=== PATIENT | female | born 1965 | race Caucasian/White ===

== ENCOUNTER 2024-04-10 15:03 | Emergency (ER) | payer OTHER, SELFPAY ==
[2024-04-10 15:40] VITALS: BP 123/75
--- NOTE | 2024-04-10 15:58 | ED.MUSCINJ ---
Addendum entered and electronically signed by Ruel Boucher Jr., PA-C 04/14/24 08:11:
Results with methicillin sensitive staph. Patient can remain on previously prescribed antibiotic.
Addendum entered and electronically signed by Howard Darnell PA-C 04/12/24 08:53:
Received culture result from fluid culture that was drawn 2 days ago. There is moderate presumptive Staphylococcus aureus on the pulmonary result. Patient started on Keflex. Attempted to call patient to discuss results however there was no
answer. Left message to return call.
Original Note:
HPI-Injury
General
Chief Complaint: Musculo-Skeletal Complaint
Source: patient
Exam Limitations: none
Time Seen by Provider: 04/10/24 15:49
Nursing documentation reviewed up to this point in time: agreed with
History of Present Illness-Injury
Is this injury a work related problem?: No
Is pt an associate of [facility]?: No
Initial Injury comments:
Patient states she injured her elbow last week while at [facility] [place]. SHe does not recall injury. States on her drive home she noticed blood and a smallwound to right posterior elbow. OVer the past 2 days elbow has gotten increasingly red
and swollen.Brought self to ED for eval.
Past History
Past History
ED Past Medical History: None
Review of Systems
Review of Systems
Allergies reviewed?: Yes
All Other Systems: ROS reviewed and negative except as documented in HPI and ROS
Constitutional: Reports no symptoms
Musculoskeletal: Reports joint swelling (right posterior elbow. Full nonpainful ROM to joint.)
Skin: Reports other (erythema and swelling to right posterior elbow.)
Neurological: Reports no symptoms
Psychiatric: Reports no symptoms
Musculoskeletal Injury Exam
Musculoskeletal Injury Exam
Right Posterior Elbow:
Pain with Movement?: None
Tender to palpation?: Mild
Soft tissue swelling?: Moderate
External deformity and angulation?: None
Joint effusion?: None
Contusion?: None
Hematoma-local bleeding into tissue?: None
Strain- Sprain- Tear (Connective tissue injury)?: None
Crepitus with movement?: No
Joint instability?: No
Malalignment/deformity?: No
Range of motion: Full
Distal skin color and temperature: normal-warm & good color
Capillary Refill: normal
Normal distal neurovascular exam?: Yes
Peripheral Pulses: radial (right): 3+
Skin Exam
Abrasion
Right Posterior Elbow:
Description of abrasion: deep/clean
Phy Exam
General Physical Exam
General Presentation: well appearing and no apparent distress
General age: appears stated age
General Skin: warm and dry
General Habitus: normal
Musculoskeletal Exam
Musculoskeletal Exam: full ROM, neuro vasc intact and other (erythema and swelling to right posterior elbow)
Skin Exam
Skin Exam: other (erythema and swelling to right posterior elbow.)
Psychiatric Exam
Psychiatric Exam: normal mood/affect
Injury Course
Orders/Labs/Results
Orders:
Orders
04/10/24 15:07
CR Elbow - Right Min 3 Views Urgent
Comment:
Reason For Exam: Inflammation after an injury
04/10/24 16:01
Body Fluid Cell Count Urgent
What is the Body Fluid: joint
Date Specimen was Collected: 04/10/24
Time Specimen was Collected: 16:00
Comment: with DIFF
Body Fluid Crystals Urgent
What is the Body Fluid: joint
Date Specimen was Collected: 04/10/24
Time Specimen was Collected: 16:00
CBC/With Diff [Complete Blood Count/With Diff] Urgent
CMP [Comprehensive Metabolic Panel] Urgent
Lactate Level [Lactic Acid] Urgent
Fluid Culture with Gram Stain Urgent
TRAVIS Source: Joint Fluid
Specimen Description:
Date Specimen was Collected: 04/10/24
Time Specimen was Collected: 16:00
04/10/24 16:36
Cephalexin Monohydrate [Keflex] 500 mg PO NOW STA
04/10/24 16:37
Cephalexin Monohydrate [Keflex] 500 mg .ROUTE .STK-MED ONE
Abnormal Lab Results
04/10/24
16:01
WBC 10.9 H 10^3/uL
(4.8-10.8)
RBC 4.00 L 10^6/uL
(4.20-5.40)
Hct 35.4 L %
(37.0-47.0)
Absolute Neuts (auto) 7.8 H 10^3/uL
(1.4-6.5)
Absolute Monos (auto) 1.2 H 10^3/uL
(0.1-0.6)
Lymphocytes % 15.5 L %
(20.5-51.1)
Monocytes % 11.1 H %
(1.7-9.3)
Sodium 134 L mmol/L
(135-145)
04/10/24 16:01
04/10/24 16:01
Procedures
Incision/Drainage/Joint Aspiration
Right Posterior Elbow:
Anethesia: 1% Lidocaine with Epi
Preparation: cleaned with alcohol wipe
Type of procedure: aspiration
How much fluid was obtained?: number in mls (4)
Fluid description: clear
*Radiology
Radiology exam reviewed: radiology read reviewed
*Pulse Oximetry
Patient hypoxic: no
*Critical Care Note
Total Time (30-74mins, 75-104mins- exclusive of procedures): Not Applicable
ED Attending Note
-
Portions of this chart may have been created with voice recognition software.� Occasional wrong word or��sound alike� substitutions may have occurred due to the inherent limitations of voice recognition software.
Discharge Plan
Departure
Patient Disposition: Home (Routine Discharge)
Date of Disposition: 04/10/24
Time of Disposition: 16:37
Patient with high blood pressure during this ER visit?: No
Condition: Good
Covid-19: Not Applicable
Discharge Problem:
Cellulitis of right elbow
Instructions: Cellulitis (Skin Infection), Adult ED
Prescriptions:
New
cephalexin 500 mg capsule
500 mg PO Q6H 10 Days Qty: 40 0RF
Referrals:
Esteban Weeks MD [Active] -
NONE,* [Family Provider] -
Activity Restrictions/Additional Instructions:
Follow up with your family doctor in 2 days for a wound check. Return to the emergency department immediately for fever/chills, increasing pain/redness/swelling to your elbow, or for any further concerns.
Interventions
Interventions:
*Risk Screen - Suicide Last Done: 04/10/24 15:50
*General Assessment Last Done: 04/10/24 15:50
*Neglect/Abuse Screening Last Done: 04/10/24 15:50
ED- Fall Risk Assessment Last Done: 04/10/24 15:41
*Nursing Disposition Last Done: 04/10/24 16:47
ED-Musculoskeletal Assessment Last Done: 04/10/24 15:41
Discharge Date and Time
Discharge Date/Time: 04/10/24 16:48
Print Language: TUVALU[place]
[2024-04-10 16:12] LABS: % Basophils 0.5 % (0-2); % Immature Granulocytes 0.4 % (0-0.5); % Lymphocytes 15.5 % (20.5-51.1); % Monocytes 11.1 % (1.7-9.3); % Neutrophils 71.5 % (42.2-75.2); Absolute Basophils 0.1 10^3/uL (0-0.2); Absolute Eosinophils 0.1 10^3/uL (0-0.7); Absolute Lymphocytes 1.7 10^3/uL (1.2-3.4); Absolute Monocytes 1.2 10^3/uL (0.1-0.6); Absolute Neutrophils 7.8 10^3/uL (1.4-6.5); Hematocrit 35.4 % (37.0-47.0); Hemoglobin 12.3 g/dL (12.0-16.0); Mean Corp Hgb Conc. 34.7 g/dL (33.0-37.0); Mean Corpuscular Hgb 30.8 pg (27.0-31.0); Mean Corpuscular Volume 88.5 fL (81.0-99.0); Mean Platelet Volume 9.4 fL (7.4-10.4); Nucleated Red Blood Cells % 0 %; Platelet Count 239 10^3/uL (130-400); Red Cell Dist. Width 12.6 % (11.5-14.5); White Blood Cell Count 10.9 10^3/uL (4.8-10.8)
[2024-04-10 16:17] LABS: Body Fluid Mononuclear 10.2 %; Body Fluid Polymorphonuclear 89.8 %; Body Fluid WBC 7667 /CUMM
[2024-04-10 16:24] LABS: Lactic Acid 0.8 mmol/L (0.7-2.0)
[2024-04-10 16:25] LABS: ALT (SGPT) 11 U/L (0-35); AST (SGOT) 21 U/L (14-36); Albumin 4.1 g/dl (3.5-5.0); Alkaline Phosphatase 61 U/L (38-126); Blood Urea Nitrogen 9 mg/dl (7-17); Calcium 9.2 mg/dl (8.4-10.2); Carbon Dioxide 29 mmol/L (22-30); Chloride 102 mmol/L (98-107); Glucose 95 mg/dl (70-99); Potassium 3.7 mmol/L (3.5-5.1); Sodium 134 mmol/L (135-145); Total Bilirubin 0.4 mg/dl (0.2-1.3); Total Protein 6.4 g/dl (6.3-8.2); eGFR > 60.00
[2024-04-10] MEDS: KEFLEX 500 MG PO (16:38)
[2024-04-10 16:47] VITALS: BP 125/73
[2024-04-10 16:59] LABS: Body Fluid Second Tech ASW
== END 2024-04-10 16:48 | disposition home or self-care (01) ==
LOC: EMR 15:03
PROVIDERS: Nurse Practitioner; EMERGENCY PHYSICIAN Emergency Medicine
DX: L03.113 Cellulitis of right upper limb (principal); S50.311A Abrasion of right elbow, initial encounter; X58.XXXA Exposure to other specified factors, initial encounter
CPT/HCPCS: 99284; 20605; 73080; 80053; 83605; 85025; 87015; 87070; 87186; 87205; 89051; 89060